=== PATIENT | male | born 1950 | race Caucasian/White ===

== ENCOUNTER 2016-08-01 17:38 | Emergency (ER) | payer MEDICARE, MEDICAID ==
[~2016-08-01] VITALS: Ht 185.4 cm; Wt 98.7 kg
[~2016-08-01 17:38] MED LIST: ASPIRIN 32325 MG/TAB PO; CATAPRES 0.1MG0.1 MG PO; COREG12.5 MG PO; FEROSUL325 MG PO; FOLIC ACID 11 MG/TA1 PO; HYDROCHLOR50 MG PO; KEPPRA 500MG500 MG PO; KEPPRA1000 MG PO; KLOR-CON 1010 MEQ PO; LANTUS100 U/ML SC; LANTUS100 U/ML SQ; LASIX 20MG TABL20 MG PO; LASIX 40MG TABL40 MG PO; LEVEMIR FLEXPEN SQ; LEVEMIR INSULIN SC; LIPITOR 10MG10 MG PO; LISINOPRIL PO; MICRO-K 1010 MEQ PO; MINOCYCLIN100 MG/CAP PO; MIRALAX PA17 GM/Dose PO; NATURAL IRON65 MG PO; NEPHROCAP PO; NIFEDIPINE ER30 MG PO; NORCO 325 MG-51 TAB PO; NORVASC 10MG10 MG PO; NOVLOG SQ; NOVOLOG 100U100 U/ML SQ; PROZAC 20MG20 MG PO; RENAL MULTIVITA1 TAB PO; RIFADIN300 MG PO; TOPROL XL100 MG PO; TRAVATAN Z 2.52.5 ML OU; ZESTRIL 20MG TA20 MG PO; ZOCOR40 MG PO
[2016-08-01 17:52] VITALS: TEMP 98.1
[2016-08-01 18:56] LABS: BASO % 0.8 % (0.0-2.0); EOS # 0.1 (0.0-0.7); GRAN # 2.9 (1.4-6.5); LYMPH # 0.5 (1.2-3.4); LYMPH % 13.5 % (20.0-51.0); MEAN CELL VOLUME 95 fl (80.0-100.0); MEAN CORPUSCULAR HGB CONC 34 g/dl (33.0-37.0); MEAN PLATELET VOLUME 9.9 fl (7.4-10.4); MONO # 0.4 (0.1-0.6); MONO % 9.9 % (1.7-9.3); PLATELET COUNT 126 K/mm3 (130-400); RED BLOOD COUNT 2.93 M/mm3 (4.20-5.60); REDCELL DISTRIBUTION WIDTH-CV 12.8 % (11.5-14.5); WHITE BLOOD COUNT 3.9 K/mm3 (4.8-10.8)
[2016-08-01] MEDS ORDERED: ZOLOFT 25MG25 MG PO (18:59)
[2016-08-01] MEDS ORDERED: PHOS LO PO (19:00)
[2016-08-01 19:01] LABS: ADJUSTED CALCIUM 9.6 mg/dL (8.4-10.2); ALBUMIN 3.9 gm/dL (3.5-5.0); CALCIUM 9.5 mg/dL (8.4-10.2); CREATININE, serum 2.65 mg/dL (0.66-1.25); HEMATOCRIT 27.9 % (42.0-52.0); HEMOGLOBIN 9.6 g/dl (13.5-18.0); MEAN CORPUSCULAR HEMOGLOBIN 33 pg (27.0-31.0); PHOSPHOROUS 2.3 mg/dL (2.5-4.5); POTASSIUM 3.7 mmol/L (3.4-5.0); TOTAL PROTEIN 6.5 gm/dL (6.4-8.2)
[2016-08-01] MEDS ORDERED: ROCALTROL0.5 MCG PO (19:03)
[2016-08-01] MEDS ORDERED: ARANESP0.04 MG/ML SQ (19:04)
[2016-08-01] MEDS ORDERED: LASIX 80MG TABL80 MG PO (19:11)
[2016-08-01 20:25] VITALS: BP 138/66; PULSE 84
== END 2016-08-01 20:30 | disposition home or self-care (01) ==
LOC: COL.ER 17:38
PROVIDERS: Emergency Medicine
DX: I95.3 Hypotension of hemodialysis (principal); R00.1 Bradycardia, unspecified; E11.22 Type 2 diabetes mellitus with diabetic chronic kidney disease; I12.0 Hypertensive chronic kidney disease with stage 5 chronic kidney disease or end stage renal disease; N18.6 End stage renal disease; Z99.2 Dependence on renal dialysis; Z79.4 Long term (current) use of insulin

== ENCOUNTER 2016-08-26 10:21 | Inpatient (IN) | payer MEDICARE ==
[2016-08-26] VITALS (10 sets, daily range): BP systolic 108–157; BP diastolic 48–70; PULSE 67–90; TEMP 97.6–98
[~2016-08-26] VITALS: Ht 185.4 cm; Wt 101.0 kg
[~2016-08-26 10:21] MED LIST changes: +ARANESP0.04 MG/ML SQ; +LASIX 80MG TABL80 MG PO; +PHOS LO PO; +ROCALTROL0.5 MCG PO; +ZOLOFT 25MG25 MG PO
[2016-08-26 11:58] LABS: CALCIUM 9.3 mg/dL (8.4-10.2); POTASSIUM 4.6 mmol/L (3.4-5.0)
[2016-08-26 11:59] LABS: BASO % 0.4 % (0.0-2.0); EOS # 0.2 (0.0-0.7); EOS % 4.3 % (0-4.0); GRAN % 66.4 % (42.2-75.2); LYMPH % 21.3 % (20.0-51.0); MEAN CELL VOLUME 98 fl (80.0-100.0); MEAN CORPUSCULAR HGB CONC 33 g/dl (33.0-37.0); MEAN PLATELET VOLUME 9.7 fl (7.4-10.4); MONO # 0.3 (0.1-0.6); MONO % 7.4 % (1.7-9.3); PLATELET COUNT 121 K/mm3 (130-400); RED BLOOD COUNT 2.98 M/mm3 (4.20-5.60); REDCELL DISTRIBUTION WIDTH-CV 13.8 % (11.5-14.5); WHITE BLOOD COUNT 4.5 K/mm3 (4.8-10.8)
[2016-08-26 12:00] LABS: HEMATOCRIT 29.3 % (42.0-52.0); HEMOGLOBIN 9.8 g/dl (13.5-18.0); MEAN CORPUSCULAR HEMOGLOBIN 33 pg (27.0-31.0)
[2016-08-26 12:11] LABS: CREATININE, serum 4.23 mg/dL (0.66-1.25)
[2016-08-26 15:58] LABS: PHOSPHOROUS 3.8 mg/dL (2.5-4.5)
[2016-08-27 02:42] VITALS: BP 146/69; PULSE 87; TEMP 98.1
[2016-08-27 05:56] VITALS: BP 156/68; PULSE 93; TEMP 98.8
[2016-08-27 07:45] LABS: CALCIUM 9.1 mg/dL (8.4-10.2); MAGNESIUM 2.1 mg/dL (1.6-2.3); PHOSPHOROUS 4.6 mg/dL (2.5-4.5); POTASSIUM 5.1 mmol/L (3.4-5.0)
[2016-08-27 08:15] LABS: CREATININE, serum 5.14 mg/dL (0.66-1.25)
[2016-08-27 08:29] LABS: HEMATOCRIT 29.9 % (42.0-52.0); HEMOGLOBIN 9.9 g/dl (13.5-18.0)
[2016-08-27 09:08] VITALS: BP 153/70; PULSE 97; TEMP 98.4
[2016-08-27 17:56] VITALS: BP 105/41; PULSE 79; TEMP 98.2
[2016-08-27 21:21] VITALS: BP 102/39; PULSE 74; TEMP 98.1
[2016-08-28 01:27] VITALS: BP 121/52; PULSE 67; TEMP 97.9
[2016-08-28 05:22] VITALS: BP 131/53; PULSE 73; TEMP 98.5
[2016-08-28 09:35] VITALS: BP 122/54; PULSE 65; TEMP 97.9
[2016-08-28] MEDS ORDERED: NORCO 325 MG-51 TAB PO (09:40)
== END 2016-08-28 12:35 | disposition home or self-care (01) | DRG 353 ==
LOC: SDCO 10:21 → INPTSU 12:05 → SDCO 12:30 → SURG 15:22
PROVIDERS: Surgery
PROC: 0WUF0JZ Supplement Abdominal Wall with Synthetic Substitute, Open Approach (ICD-10-PCS; principal; 2016-08-26 12:30)
PROC: 5A1D00Z (ICD-10-PCS; 2016-08-27)
DX: K43.2 Incisional hernia without obstruction or gangrene (principal); N18.6 End stage renal disease; I13.2 Hypertensive heart and chronic kidney disease with heart failure and with stage 5 chronic kidney disease, or end stage renal disease; Z85.038 Personal history of other malignant neoplasm of large intestine; E11.22 Type 2 diabetes mellitus with diabetic chronic kidney disease; Z99.2 Dependence on renal dialysis; D63.1 Anemia in chronic kidney disease; I25.10 Atherosclerotic heart disease of native coronary artery without angina pectoris; Z79.4 Long term (current) use of insulin; I50.9 Heart failure, unspecified
CPT/HCPCS: C1781; J1170; J1815; J2270; J2405; J2704; J3010

== ENCOUNTER 2016-10-02 08:55 | Outpatient (CLI) | payer MEDICARE ==
[2016-10-02] VITALS (7 sets, daily range): BP systolic 133–175; BP diastolic 61–77; PULSE 63–90; TEMP 97.8
[~2016-10-02] VITALS: Ht 185.6 cm; Wt 100.0 kg
== END 2016-10-02 18:36 | disposition home or self-care (01) ==
LOC: EUO 08:55 → COL.RAD 09:00 → EUO 18:36
DX: T82.49XA Other complication of vascular dialysis catheter, initial encounter (principal); Y83.8 Other surgical procedures as the cause of abnormal reaction of the patient, or of later complication, without mention of misadventure at the time of the procedure
CPT/HCPCS: C1725; J1644; J3010; J7120; Q9967

== ENCOUNTER 2018-04-09 13:19 | Emergency (ER) | payer MEDICARE, OTHER ==
[~2018-04-09] VITALS: Ht 177.8 cm; Wt 81.8 kg
[~2018-04-09 13:19] MED LIST changes: +ASPIRIN 81M81 MG/TA2 PO; +CEPHALEXIN500 M1 PO; -LANTUS100 U/ML SQ; +NOVOLIN 70/30 710 ML SQ
[2018-04-09 13:48] LABS: HEMOGLOBIN 10.2 g/dl (13.5-18.0); MEAN CELL VOLUME 96 fl (80.0-100.0); MEAN CORPUSCULAR HEMOGLOBIN 32 pg (27.0-31.0); MEAN CORPUSCULAR HGB CONC 33 g/dl (33.0-37.0); PLATELET COUNT 107 K/mm3 (130-400); RED BLOOD COUNT 3.24 M/mm3 (4.20-5.60); REDCELL DISTRIBUTION WIDTH-CV 14.6 % (11.5-14.5)
[2018-04-09 13:55] LABS: HEMATOCRIT 31.1 % (42.0-52.0)
[2018-04-09 13:57] LABS: INR 1.1 (0.8-3.0); PROTHROMBIN TIME 12.3 SECONDS (9.7-12.8)
[2018-04-09 14:08] LABS: ALBUMIN 4.1 gm/dL (3.5-5.0); BILIRUBIN,TOTAL 0.5 mg/dL (0.0-1.0); TOTAL PROTEIN 6.9 gm/dL (6.4-8.2)
[2018-04-09 14:09] LABS: CREATININE, serum 7.72 mg/dL (0.66-1.25)
[2018-04-09 14:22] LABS: BAND 7 % (0-10); LYMPHOCYTE 2 % (20.0-51.0); NEUTROPHILS 88 % (42.0-75.2); PLATELET ESTIMATE NORMAL (NORMAL)
[2018-04-09 16:51] VITALS: BP 159/77; PULSE 85; TEMP 98.3
== END 2018-04-09 16:51 | disposition home or self-care (01) ==
LOC: COL.ER 13:19
PROVIDERS: Emergency Medicine
DX: I12.9 Hypertensive chronic kidney disease with stage 1 through stage 4 chronic kidney disease, or unspecified chronic kidney disease (principal); E10.22 Type 1 diabetes mellitus with diabetic chronic kidney disease; E10.649 Type 1 diabetes mellitus with hypoglycemia without coma; N18.9 Chronic kidney disease, unspecified; Z79.4 Long term (current) use of insulin; Z79.82 Long term (current) use of aspirin
CPT/HCPCS: J1610; J2405

== ENCOUNTER 2018-06-15 06:24 | Day surgery (SDC) | payer MEDICARE, OTHER ==
[~2018-06-15] VITALS: Ht 185.4 cm; Wt 93.1 kg
[2018-06-15 07:14] VITALS: BP 163/76; PULSE 73; TEMP 98.2
[2018-06-15 08:45] VITALS: BP 99/48; PULSE 65; TEMP 98
[2018-06-15 09:00] VITALS: BP 124/59; PULSE 64
== END 2018-06-15 09:15 | disposition home or self-care (01) ==
LOC: SDCO 06:24
DX: K92.1 Melena (principal); D50.9 Iron deficiency anemia, unspecified; K57.30 Diverticulosis of large intestine without perforation or abscess without bleeding; K44.9 Diaphragmatic hernia without obstruction or gangrene; K29.70 Gastritis, unspecified, without bleeding; I25.10 Atherosclerotic heart disease of native coronary artery without angina pectoris; I13.2 Hypertensive heart and chronic kidney disease with heart failure and with stage 5 chronic kidney disease, or end stage renal disease; E11.40 Type 2 diabetes mellitus with diabetic neuropathy, unspecified; E11.22 Type 2 diabetes mellitus with diabetic chronic kidney disease; E11.39 Type 2 diabetes mellitus with other diabetic ophthalmic complication; N18.6 End stage renal disease; I50.9 Heart failure, unspecified; E83.51 Hypocalcemia; E78.5 Hyperlipidemia, unspecified; E66.9 Obesity, unspecified; M86.60 Other chronic osteomyelitis, unspecified site; Z99.2 Dependence on renal dialysis; Z79.4 Long term (current) use of insulin; Z90.49 Acquired absence of other specified parts of digestive tract; Z86.73 Personal history of transient ischemic attack (TIA), and cerebral infarction without residual deficits; Z85.038 Personal history of other malignant neoplasm of large intestine; Z79.82 Long term (current) use of aspirin; Z82.49 Family history of ischemic heart disease and other diseases of the circulatory system; Z83.3 Family history of diabetes mellitus
CPT/HCPCS: OP; J2704; J7030

== ENCOUNTER 2018-08-12 04:22 | Inpatient (IN) | payer MEDICARE, OTHER ==
[~2018-08-12] VITALS: Ht 185.4 cm; Wt 89.6 kg
[2018-08-12] VITALS (149 sets, daily range): BP systolic 133–163; BP diastolic 58–80; PULSE 77–94; TEMP 97.7–98.6; O2SAT 98–100
--- NOTE | 2018-08-12 07:15 | NUR ---
Pt complaining of nausea, not feeling well at shift change; heparin gtt infusing from [facility], but no orders at this time. ADÁN Fuller, places call to Dr. Gomes who will put in orders. VSS. Telemetry box put on patient.
[2018-08-12 08:45] LABS: BASO % 0.1 % (0.0-2.0); EOS % 0.3 % (0-4.0); GRAN # 5.8 (1.4-6.5); GRAN % 87.1 % (42.2-75.2); HEMOGLOBIN 10.3 g/dl (13.5-18.0); LYMPH # 0.5 (1.2-3.4); MEAN CELL VOLUME 98 fl (80.0-100.0); MEAN CORPUSCULAR HEMOGLOBIN 32 pg (27.0-31.0); MEAN CORPUSCULAR HGB CONC 33 g/dl (33.0-37.0); MEAN PLATELET VOLUME 10.9 fl (7.4-10.4); MONO # 0.3 (0.1-0.6); MONO % 5.1 % (1.7-9.3); PLATELET COUNT 105 K/mm3 (130-400); RED BLOOD COUNT 3.19 M/mm3 (4.20-5.60); REDCELL DISTRIBUTION WIDTH-CV 15.1 % (11.5-14.5)
[2018-08-12 08:46] LABS: HEMATOCRIT 31.1 % (42.0-52.0)
[2018-08-12 08:50] LABS: PARTIAL THROMBOPLASTIN TIME 66.5 SECONDS (26.0-37.0)
[2018-08-12 08:57] LABS: CALCIUM 9.4 mg/dL (8.4-10.2); POTASSIUM 5.1 mmol/L (3.4-5.0)
[2018-08-12 09:01] LABS: CREATININE, serum 8.41 mg/dL (0.66-1.25)
[2018-08-12 10:00] LABS: TROPONIN-I 1.66 ng/mL (0.000-0.035)
--- NOTE | 2018-08-12 10:37 | NUR ---
Pt to dialysis. Dr. Galan in to see patient, possible heart cath tomorrow. Dr. Gomes updated. Heparin gtt rate switched to 9 mL/hr per Kaylyn, Pharmacy and Dr. Gomes
--- NOTE | 2018-08-12 14:15 | NUR ---
Pt back to floor post dialysis. Complaining of chest pain; prn nitro given x1 and chest pain resolves. Pt denies further needs at this time.
--- NOTE | 2018-08-12 15:35 | NUR ---
EMMA and SW student met with the patient and patient's , Nasima, to discuss discharge plan. The patient lives in [place] with his . He reports independence with ADLs and has a cane, walker, and showerchair. The patient's PCP is Dr. Alethea Regalado and he receives his medications at the [facility]. He reports no difficulties obtaining his meds. The patient does not have advanced directives, but he was interested in obtaining a form for DPOA-HC. EMMA provided. The patient plans to return home with his upon discharge. No additional needs at this time.
--- NOTE | 2018-08-12 18:26 | NUR ---
Summary note: Pt's afternoon troponin came back increasingly elevated. Call placed to Dr. Galan, who states he would like patient in the ICU with a nitro gtt. Dr. Gomes called with updates. PRN nitro given x2 this afternoon for chest pain of 3/10 with good results. Awaiting ICU bed and pt will transfer downstairs tonight. Plan for heart cath and dialysis tomorrow. Pt's at bedside.
--- NOTE | 2018-08-12 18:45 | NUR ---
Report given to ADÁN Jackson. Pt resting in bed.
--- NOTE | 2018-08-12 19:24 | NUR ---
Report given to Tomy EMAIL ENGINEER.
--- NOTE | 2018-08-12 20:41 | NUR ---
PT transferred to ICU 8 via bed with chart; all personal items transferred with PT. Family not present at time of transfer. PT reported positive improvement in chest pain since assessment at approximately 1930. Report given by ADÁN Delgado to ICU receiving nurse; No significant acute changes since shift change. CDA
--- NOTE | 2018-08-12 20:43 | NUR ---
Patient arrives to ICU 08 accompanied by Rosita, Medical RN. Patient resting in bed, no issues to report at this time. Will assume care of patient at this time.
[2018-08-13] VITALS (301 sets, daily range): BP systolic 130–166; BP diastolic 61–82; PULSE 83–95; TEMP 98.2–98.7; O2SAT 97–100
--- NOTE | 2018-08-13 04:30 | NUR ---
Heparin gtt shut off at this time, scheduled heart cath for 0830, needs off for 4 hours prior.
[2018-08-13 06:00] LABS: HEMOGLOBIN 11.2 g/dl (13.5-18.0); MEAN CELL VOLUME 99 fl (80.0-100.0); MEAN CORPUSCULAR HEMOGLOBIN 33 pg (27.0-31.0); MEAN CORPUSCULAR HGB CONC 33 g/dl (33.0-37.0); MEAN PLATELET VOLUME 11.1 fl (7.4-10.4); PLATELET COUNT 157 K/mm3 (130-400); RED BLOOD COUNT 3.45 M/mm3 (4.20-5.60); REDCELL DISTRIBUTION WIDTH-CV 15.7 % (11.5-14.5)
[2018-08-13 06:01] LABS: HEMATOCRIT 34.1 % (42.0-52.0)
[2018-08-13 06:09] LABS: CALCIUM 9.7 mg/dL (8.4-10.2); POTASSIUM 5.4 mmol/L (3.4-5.0)
[2018-08-13 06:25] LABS: CREATININE, serum 6.41 mg/dL (0.66-1.25); TROPONIN-I 8.27 ng/mL (0.000-0.035)
--- NOTE | 2018-08-13 07:10 | NUR ---
Report recieved from Tomy MCCAIN. NTG verified at 20mcg/min into right AC.
--- NOTE | 2018-08-13 08:32 | NUR ---
Report received from ADÁN Mckenna, care assumed of patient at this time.
--- NOTE | 2018-08-13 08:33 | NUR ---
Report given to Dorothy MCCAIN. offset label rewinder here to talk with patient for pre procedure. Consent signed and on chart. Family at bedside
--- NOTE | 2018-08-13 08:50 | NUR ---
Patient taken to labor gang supervisor via bed.
--- NOTE | 2018-08-13 09:18 | NUR ---
ALL MEDS GIVEN VIA VERBAL WITH READBACK. ALLENS TEST POSITIVE.
--- NOTE | 2018-08-13 10:15 | NUR ---
Patient transferred back from laboratory animal facility supervisor, left femoral groin site soft without hematoma, dressing clean, dry and intact. Patient instructed to keep head flat on pillow and left leg straight, patient verbalized understanding. at bedside. Drs. Montes and Eliseo here to see patient. Patient waiting on transfer to [facility].
--- NOTE | 2018-08-13 10:43 | NUR ---
Report called to ADÁN Mcguire at [facility].
--- NOTE | 2018-08-13 11:45 | NUR ---
Patient transferred to [facility] via [facility]. Paperwork sent with patient. [facility] was updated of ETA.
== END 2018-08-13 11:45 | disposition short-term general hospital (02) | DRG 280 ==
LOC: MEDICAL 04:22 → ICU 19:49
PROVIDERS: Internal Medicine Cardiovascular Disease; ADMIT Internal Medicine
PROC: 5A1D70Z Performance of Urinary Filtration, Intermittent, Less than 6 Hours Per Day (ICD-10-PCS; 2018-08-12)
PROC: B2111ZZ Fluoroscopy of Multiple Coronary Arteries using Low Osmolar Contrast (ICD-10-PCS; principal; 2018-08-13)
DX: I21.4 Non-ST elevation (NSTEMI) myocardial infarction (principal); N18.6 End stage renal disease; I13.2 Hypertensive heart and chronic kidney disease with heart failure and with stage 5 chronic kidney disease, or end stage renal disease; I50.32 Chronic diastolic (congestive) heart failure; I25.119 Atherosclerotic heart disease of native coronary artery with unspecified angina pectoris; E11.22 Type 2 diabetes mellitus with diabetic chronic kidney disease; E11.65 Type 2 diabetes mellitus with hyperglycemia; Z99.2 Dependence on renal dialysis; Z79.4 Long term (current) use of insulin; Z95.0 Presence of cardiac pacemaker; D63.1 Anemia in chronic kidney disease; E78.5 Hyperlipidemia, unspecified; G40.909 Epilepsy, unspecified, not intractable, without status epilepticus; Z85.030 Personal history of malignant carcinoid tumor of large intestine
CPT/HCPCS: C1760; C1769; C1887; C1894; J0583; J1644; J2250; J2270; J2405; J3010; Q9967